=== PATIENT | male | born 1995 | race American Indian/Alaskan Native ===

== ENCOUNTER 2016-08-26 22:36 | Emergency (ER) | payer SELFPAY | END 2016-08-26 23:43 | disposition left against medical advice (07) | LOC: ED 22:36 | DX: Z00.8 Encounter for other general examination (principal); Z53.21 Procedure and treatment not carried out due to patient leaving prior to being seen by health care provider ==

== ENCOUNTER 2021-02-26 18:56 | Emergency (ER) | payer MEDICAID, SELFPAY ==
[2021-02-26] MEDS ORDERED: LORazepam 2 MG/ML VIAL IM PRN (19:47)
[2021-02-26] MEDS ORDERED: HALOPERIDOL LACTATE 5 MG/1 ML INJ IM PRN (19:47)
[2021-02-26] MEDS ORDERED: diphenhydrAMINE 25 MG CAP PO PRN (19:47)
--- NOTE | 2021-02-26 19:53 | Emergency Department Report ---
ED General Adult HPI - General Chief complaint: Psych Stated complaint: I am fine, how are you PUI?: No Time Seen by Provider: 02/26/21 19:38 Source: patient, EMS ( EMS documentation not available at time of chart dictati on ), RN notes reviewed, old records reviewed Mode of arrival: Ambulatory Limitations: Other (The patient is psychotic and disorganized) - History of Present Illness Initial comments: This is a 25-year-old gentleman. He is not known to myself previously. He presents to the ER with a signed 1013 for acute psychosis. As per 1013 documentation: "Individual is diagnosed with schizophrenia. He was observed being paranoid and delusional. Mom reported [ ] is pacing all night and not sleeping ind report document and people are after him." "Individual took a letter from his pocket and kneeled on the floor holding fire []" The signed 1013 is difficult to read. The patient himself denies physical pain. He states he is not homicidal or suicidal. He states he has not tried to overdose on anything. He states he lives with his mother. He believes he takes medications that are "prescribed by my teacher." He thinks he goes to either [facility] or [facility] for his prescriptions. He does not know specifically what prescriptions he takes. At the moment, the patient is not accompanied by friends or family at this time for collateral information or additional information. Attempted to call mother at listed phone number; [phone]. Called, nobody answer, left voicemail for call back. Patient is disorganized, delusional, psychotic and a poor historian. He is therefore not able to describe the qualitative nature of his symptoms, exacerbating factors, relieving factors or aggravating factors. However, he states he has no complaints at this time.. -: This afternoon Quality: other Consistency: other Improves with: other Worsens with: other Associated Symptoms: other - Related Data Allergies Allergy/AdvReac Type Severity Reaction Status Date / Time No Known Allergies Allergy Unverified 02/26/21 20:00 ED Review of Systems ROS: Stated complaint: MENTAL HEALTH Other details as noted in HPI Comment: Unobtainable due to pts medical conditions (Patient is disorganized and psychotic. The patient denies all complaints.) ED Physical Exam - General Limitations: Other (Acute psychosis) General appearance: alert, in no apparent distress - Head Head exam: Present: atraumatic, normocephalic - Eye Eye exam: Present: normal appearance, EOMI. Absent: nystagmus - ENT ENT exam: Present: normal exam, normal orophraynx, mucous membranes moist, normal external ear exam - Neck Neck exam: Present: normal inspection, full ROM. Absent: tenderness, meningismus - Respiratory Respiratory exam: Present: normal lung sounds bilaterally. Absent: respiratory distress, wheezes, rales, rhonchi, stridor, decreased breath sounds - Cardiovascular Cardiovascular Exam: Present: regular rate, normal rhythm, normal heart sounds. Absent: bradycardia, tachycardia, irregular rhythm, systolic murmur, diastolic murmur, rubs, gallop - GI/Abdominal GI/Abdominal exam: Present: soft. Absent: distended, tenderness, guarding, rebound, rigid, pulsatile mass - Rectal Rectal exam: Present: deferred - Extremities Exam Extremities exam: Present: normal inspection, full ROM, other (2+ pulses noted in the bilateral upper and lower extremities. There is no palpable cord. negative Homans sign. Muscular compartments are soft. The pelvis is stable.). Absent: pedal edema, calf tenderness - Back Exam Back exam: Present: normal inspection, full ROM. Absent: tenderness, CVA tenderness (R), CVA tenderness (L), paraspinal tenderness, vertebral tenderness - Neurological Exam Neurological exam: Present: alert (The patient is alert to name diagnosis), normal gait, other (No facial droop. Tongue midline. Extraocular movements intact bilaterally. Facial sensation intact to light touch in V1, V2, V3 distribution bilaterally. 5 and a 5 strength in 4 extremities. Sensation intact to light touch in 4 extremities.). Absent: motor sensory deficit - Psychiatric Psychiatric exam: Present: anxious - Skin Skin exam: Present: warm, dry, intact, normal color. Absent: rash ED Course Vital Signs 02/26/21 02/26/21 20:06 20:08 Temperature 99.5 F Pulse Rate 51 L Respiratory 18 20 Rate Blood Pressure 116/69 [Right] O2 Sat by Pulse 100 100 Oximetry - Reevaluation(s) Reevaluation #1: 02/26/21 19:53 Differential diagnosis, including but not limited to: Psychosis, schizophrenia, medical clearance for psychiatric placement Assessment and plan: 25-year-old gentleman, who is pleasant, calm and cooperative, who presents with the signs 1013, and documentation of paranoid and delusional behavior. Patient placed on hold status. Appropriate screening laboratory studies ordered, including Covid swab. This is to facilitate psychiatric placement. Have requested that nursing team reconcile patient's home medications. Have called up family, no answer, left voicemail for call back. Reassess after initial data points. 02/26/21 21:15 Laboratory studies thus far unremarkable. Valproic acid and lithium levels pending. Elevated CK and appreciated, given young age, soft muscular compartments, normal renal function, this does not represent definition criteria for rhabdomyolysis, this will decrease on its own with rest, oral hydration. Does not require IV fluids or repeat check at this time. Assuming Depakote and lithium levels within normal limits, the patient is found to be medically suitable for psychiatric consultation, evaluation and placement. Specifically, at this point time, this patient does not appear to have an emergent medical condition which would preclude psychiatric consultation, evaluation, placement and disposition 02/26/21 21:41 Toxicology screen unremarkable. Awaiting psychiatric recommendations. Medically suitable for psychiatric placement at this time. No emergent medical condition is identified. ED Medical Decision Making - Lab Data Result diagrams: 02/26/21 19:51 02/26/21 19:51 Vital Signs 02/26/21 02/26/21 20:06 20:08 Temperature 99.5 F Pulse Rate 51 L Respiratory 18 20 Rate Blood Pressure 116/69 [Right] O2 Sat by Pulse 100 100 Oximetry Lab Results 02/26/21 02/26/21 02/26/21 Range/Units 19:51 19:51 19:51 WBC 3.8 L (4.5-11.0) K/mm3 RBC 4.37 (3.65-5.03) M/mm3 Hgb 14.2 (11.8-15.2) gm/dl Hct 41.5 (35.5-45.6) % MCV 95 H (84-94) fl MCH 32 (28-32) pg MCHC 34 (32-34) % RDW 14.2 (13.2-15.2) % Plt Count 174 (140-440) K/mm3 Sodium (137-145) mmol/L Potassium (3.6-5.0) mmol/L Chloride (98-107) mmol/L Carbon Dioxide (22-30) mmol/L Anion Gap mmol/L BUN (9-20) mg/dL Creatinine (0.8-1.3) mg/dL Estimated GFR ml/min BUN/Creatinine Ratio % Glucose (75-100) mg/dL Calcium (8.4-10.2) mg/dL Magnesium (1.7-2.3) mg/dL Total Bilirubin (0.1-1.2) mg/dL AST (5-40) units/L ALT (7-56) units/L Alkaline Phosphatase (35-129) units/L Total Creatine Kinase (55-170) units/L Total Protein (6.3-8.2) g/dL Albumin (3.9-5) g/dL Albumin/Globulin Ratio % TSH (0.270-4.200) mlU/mL Urine Color (Yellow) Urine Turbidity (Clear) Urine pH (5.0-7.0) Ur Specific [place] (1.003-1.030) Urine Protein (Negative) mg/dL Urine Glucose (UA) (Negative) mg/dL Urine Ketones (Negative) mg/dL Urine Blood (Negative) Urine Nitrite (Negative) Urine Bilirubin (Negative) Urine Urobilinogen (<2.0) mg/dL Ur Leukocyte Esterase (Negative) Urine WBC (Auto) (0.0-6.0) /HPF Urine RBC (Auto) (0.0-6.0) /HPF Urine Mucus /HPF Salicylates < 0.3 L (2.8-20.0) mg/dL Urine Opiates Screen Urine Methadone Screen Acetaminophen 5.0 L (10.0-30.0) ug/mL Ur Barbiturates Screen Ur Phencyclidine Scrn Ur Amphetamines Screen U Benzodiazepines Scrn Urine Cocaine Screen U Marijuana (THC) Screen Drugs of Abuse Note Plasma/Serum Alcohol (0-0.07) % 02/26/21 02/26/21 02/26/21 Range/Units 19:51 19:51 19:51 WBC (4.5-11.0) K/mm3 RBC (3.65-5.03) M/mm3 Hgb (11.8-15.2) gm/dl Hct (35.5-45.6) % MCV (84-94) fl MCH (28-32) pg MCHC (32-34) % RDW (13.2-15.2) % Plt Count (140-440) K/mm3 Sodium 138 (137-145) mmol/L Potassium 4.3 (3.6-5.0) mmol/L Chloride 99.8 (98-107) mmol/L Carbon Dioxide 27 (22-30) mmol/L Anion Gap 16 mmol/L BUN 16 (9-20) mg/dL Creatinine 1.1 (0.8-1.3) mg/dL Estimated GFR > 60 ml/min BUN/Creatinine Ratio 15 % Glucose 121 H (75-100) mg/dL Calcium 9.9 (8.4-10.2) mg/dL Magnesium 1.80 (1.7-2.3) mg/dL Total Bilirubin 0.50 (0.1-1.2) mg/dL AST 22 (5-40) units/L ALT 12 (7-56) units/L Alkaline Phosphatase 64 (35-129) units/L Total Creatine Kinase 686 H (55-170) units/L Total Protein 7.7 (6.3-8.2) g/dL Albumin 5.1 H (3.9-5) g/dL Albumin/Globulin Ratio 2.0 % TSH 0.392 (0.270-4.200) mlU/mL Urine Color (Yellow) Urine Turbidity (Clear) Urine pH (5.0-7.0) Ur Specific [place] (1.003-1.030) Urine Protein (Negative) mg/dL Urine Glucose (UA) (Negative) mg/dL Urine Ketones (Negative) mg/dL Urine Blood (Negative) Urine Nitrite (Negative) Urine Bilirubin (Negative) Urine Urobilinogen (<2.0) mg/dL Ur Leukocyte Esterase (Negative) Urine WBC (Auto) (0.0-6.0) /HPF Urine RBC (Auto) (0.0-6.0) /HPF Urine Mucus /HPF Salicylates (2.8-20.0) mg/dL Urine Opiates Screen Urine Methadone Screen Acetaminophen (10.0-30.0) ug/mL Ur Barbiturates Screen Ur Phencyclidine Scrn Ur Amphetamines Screen U Benzodiazepines Scrn Urine Cocaine Screen U Marijuana (THC) Screen Drugs of Abuse Note Plasma/Serum Alcohol < 0.01 (0-0.07) % 02/26/21 02/26/21 Range/Units Unknown Unknown WBC (4.5-11.0) K/mm3 RBC (3.65-5.03) M/mm3 Hgb (11.8-15.2) gm/dl Hct (35.5-45.6) % MCV (84-94) fl MCH (28-32) pg MCHC (32-34) % RDW (13.2-15.2) % Plt Count (140-440) K/mm3 Sodium (137-145) mmol/L Potassium (3.6-5.0) mmol/L Chloride (98-107) mmol/L Carbon Dioxide (22-30) mmol/L Anion Gap mmol/L BUN (9-20) mg/dL Creatinine (0.8-1.3) mg/dL Estimated GFR ml/min BUN/Creatinine Ratio % Glucose (75-100) mg/dL Calcium (8.4-10.2) mg/dL Magnesium (1.7-2.3) mg/dL Total Bilirubin (0.1-1.2) mg/dL AST (5-40) units/L ALT (7-56) units/L Alkaline Phosphatase (35-129) units/L Total Creatine Kinase (55-170) units/L Total Protein (6.3-8.2) g/dL Albumin (3.9-5) g/dL Albumin/Globulin Ratio % TSH (0.270-4.200) mlU/mL Urine Color Yellow (Yellow) Urine Turbidity Clear (Clear) Urine pH 5.0 (5.0-7.0) Ur Specific [place] 1.025 (1.003-1.030) Urine Protein <15 mg/dl (Negative) mg/dL Urine Glucose (UA) Neg (Negative) mg/dL Urine Ketones Neg (Negative) mg/dL Urine Blood Neg (Negative) Urine Nitrite Neg (Negative) Urine Bilirubin Neg (Negative) Urine Urobilinogen 2.0 (<2.0) mg/dL Ur Leukocyte Esterase Neg (Negative) Urine WBC (Auto) 3.0 (0.0-6.0) /HPF Urine RBC (Auto) 2.0 (0.0-6.0) /HPF Urine Mucus Few /HPF Salicylates (2.8-20.0) mg/dL Urine Opiates Screen Presumptive negative Urine Methadone Screen Presumptive negative Acetaminophen (10.0-30.0) ug/mL Ur Barbiturates Screen Presumptive negative Ur Phencyclidine Scrn Presumptive negative Ur Amphetamines Screen Presumptive negative U Benzodiazepines Scrn Presumptive negative Urine Cocaine Screen Presumptive negative U Marijuana (THC) Screen Presumptive positive Drugs of Abuse Note Disclamer Plasma/Serum Alcohol (0-0.07) % Critical care attestation.: If time is entered above; I have spent that time in minutes in the direct care of this critically ill patient, excluding procedure time. ED Disposition Clinical Impression: Medical clearance for psychiatric admission, Psychosis Disposition: [id number]/TX-[id number] PSY HOSP/PSY UNIT Is pt being admited?: No Does the pt Need Aspirin: No Condition: Good
[2021-02-26 20:08] LABS: Amphetamine Screen,Urine PRESUMPTIVE NEGATIVE; Benzodiazepines Screen,Urine PRESUMPTIVE NEGATIVE; Bilirubin,Urine NEG (Negative); Blood,Urine NEG (Negative); Cannabinoid Screen,Urine PRESUMPTIVE POSITIVE; Cocaine Screen,Urine PRESUMPTIVE NEGATIVE; Color,Urine Yellow (Yellow); Methadone Screen,Urine PRESUMPTIVE NEGATIVE; Mucus,Urine FEW /HPF; Opiate Screen,Urine PRESUMPTIVE NEGATIVE; Protein,Urine <15 mg/dL mg/dL (Negative)
[2021-02-26 20:13] LABS: Hematocrit 41.5 % (35.5-45.6); Hemoglobin 14.2 gm/dl (11.8-15.2); Mean Corpuscular HGB Conc 34 % (32-34); Mean Corpuscular Volume 95 fl (84-94); Red Blood Count 4.37 M/mm3 (3.65-5.03); Red Cell Distribution Width 14.2 % (13.2-15.2)
[2021-02-26 20:17] LABS: Platelet Count 174 K/mm3 (140-440)
[2021-02-26 20:27] LABS: Alanine Aminotransferase 12 units/L (7-56); Albumin 5.1 g/dL (3.9-5); BUN/Creatinine Ratio 15; Blood Urea Nitrogen 16 mg/dL (9-20); Calcium 9.9 mg/dL (8.4-10.2); Hemolysis Index 8
--- NOTE | 2021-02-27 09:47 | Consultation ---
History of Present Illness - Reason for Consult Consult date: 02/27/21 Reason for consult: psychosis - History of Present Psychiatric Illness Per ER Note: This is a 25-year-old gentleman. He is not known to myself previously. He presents to the ER with a signed 1013 for acute psychosis. As per 1013 documentation: "Individual is diagnosed with schizophrenia. He was observed being paranoid and delusional. Mom reported [ ] is pacing all night and not sleeping ind report document and people are after him." "Individual took a letter from his pocket and kneeled on the floor holding fire" The signed 1013 is difficult to read. The patient himself denies physical pain. He states he is not homicidal or suicidal. He states he has not tried to overdose on anything. He states he lives with his mother. He believes he takes medications that are "prescribed by my teacher." He thinks he goes to [facility] or [facility] for his prescriptions. He does not know specifically what prescriptions he takes. During my evaluation of 25y/o Peyton Perez, the patient was smiling inappropriately, he is responding to internal stimuli, he is paranoid. The patient is whispering at times, and at times doesn't answer the questions at all. He looks away as if listening to something. When asked why was he brought to the hospital, the patient replies "I don't even know. I was just minding my business." He then says "there are some people trying to kill me." The patient looks around. When asking the patient was he SI/HI. He fell silent and didn't say anything else. PAST PSYCHIATRIC HISTORY: Unable to obtain PAST MEDICAL HISTORY: None reported or document Family Psychiatric History: None reported or documented SOCIAL HISTORY Unable to call in REVIEW OF SYSTEMS Unable to adequately assess MENTAL STATUS EXAMINATION General Appearance and Behavior: Age appropriate, wearing appropriate clothes, cooperative, polite with questioning, fair eye contact, calm Cooperation: cooperative Psychomotor Behavior: Psychomotor normal Mood: Affect and affective range: smiling inappropriately Thought Process: illogical Thought Content: hallucinations, responding to internal stimuli Speech: Normal volume, Regular rate and rhythm, whispering at times Suicidal Ideation: did not answer Homicidal Ideation: Did not answer hallucination: Auditory Delusions: paranoid Impulse Control: Intact Insight and Judgment: Limited Memory: Intact Attention: attentive, engaging Orientation: Alert and oriented Diagnoses: Schizophrenia Treatment Plan Risperidone 0.5mg po BID Trazodone 50mg po qhs PSYCHOTHERAPY: Supportive psychotherapy provided MEDICAL: Per primary team DELIRIUM PRECAUTIONS: Please re-orient patient frequently, keep lights on during the day, and minimize benzodiazepines and opiates as these medications could worsen patient's confusion. 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 Please contact with any questions and/or concerns. Case staffed with Dr. Ngo Medications and Allergies Allergies Allergy/AdvReac Type Severity Reaction Status Date / Time No Known Allergies Allergy Unverified 02/26/21 20:00 Active Meds: Active Medications Diphenhydramine HCl (Diphenhydramine 25 Mg Cap) 50 mg PO QHS PRN PRN Reason: Insomnia Haloperidol Lactate (Haloperidol Lactate 5 Mg/1 Ml Inj) 5 mg IM Q6HR PRN PRN Reason: Agitation Lorazepam (Lorazepam 2 Mg/Ml Vial) 2 mg IM Q4HR PRN PRN Reason: Agitation Mental Status Exam - Vital signs Last Vital Signs Temp 97.6 F 02/27/21 08:22 Pulse 71 02/27/21 08:22 Resp 20 02/27/21 08:22 BP 127/71 02/27/21 08:22 Pulse Ox 100 02/27/21 08:22 Results Result Diagrams: 02/26/21 19:51 02/26/21 19:51 Abnormal lab results 02/26/21 02/26/21 02/26/21 Range/Units 19:51 19:51 19:51 WBC 3.8 L (4.5-11.0) K/mm3 MCV 95 H (84-94) fl Glucose (75-100) mg/dL Total Creatine Kinase (55-170) units/L Albumin (3.9-5) g/dL Salicylates < 0.3 L (2.8-20.0) mg/dL Acetaminophen 5.0 L (10.0-30.0) ug/mL Valproic Acid < 2.8 L (50-100) ug/mL 02/26/21 Range/Units 19:51 WBC (4.5-11.0) K/mm3 MCV (84-94) fl Glucose 121 H (75-100) mg/dL Total Creatine Kinase 686 H (55-170) units/L Albumin 5.1 H (3.9-5) g/dL Salicylates (2.8-20.0) mg/dL Acetaminophen (10.0-30.0) ug/mL Valproic Acid (50-100) ug/mL All other labs normal.
--- NOTE | 2021-02-27 10:36 | Event Note ---
Date: 02/27/21 Patient is 25 years old history of schizophrenia Patient has been admitted to the emergency room for evaluation of acute psychosis. No overnight issues. Vital signs stable. Labs reviewed and is unremarkable except for slight elevated CK of 686. Waiting for inpatient psychiatric admission.
[2021-02-27] MEDS: risperiDONE 0.25 MG TAB PO SCH ×2 (11:00→23:56)
[2021-02-27] MEDS ORDERED: traZODone 50 MG TAB PO SCH (22:00)
[2021-02-28 09:25] VITALS: BP 118/77
[2021-02-28] MEDS: risperiDONE 0.25 MG TAB PO SCH (09:55)
--- NOTE | 2021-02-28 10:12 | Event Note ---
S: Sleeping O stable vital signs A: Schizophrenia, history of acute psychosis patient is medically clear for psychiatric care P: Awaiting treatment recommendations per psychiatric team
--- NOTE | 2021-02-28 11:39 | Progress Note ---
Subjective - Reason for Consult Consult date: 02/28/21 Reason for consult: Psychosis - Chief Complaint Chief complaint: The patient was seen today in the ED waiting room. Patient reports doing well. He reports sleep and appetite as good. Patient denies any current suicidal/homicidal ideation and denies hallucination. Called patient's mother to discuss treatment plan. She reports that he is noncompliant with medication. She is receptive to patient getting discharged today. She reports that he has medications at home. Review of System Constitutional: Negative for weight loss ENT: Negative for stridor Respiratory: Negative for cough or hemoptysis All other systems reviewed and are negative MENTAL STATUS EXAMINATION General Appearance and Behavior: Age appropriate, wearing appropriate clothes, cooperative, polite with questioning, fair eye contact, calm Cooperation: cooperative Psychomotor Behavior: Psychomotor normal Mood: ok Affect and affective range: congruent with stated mood Thought Process:Goal directed Thought Content:Denies hallucinations Speech: Normal volume, Regular rate and rhythm Suicidal Ideation: Denies Homicidal Ideation: Denies hallucination:Denies Delusions:None Impulse Control: Intact Insight and Judgment: Limited Memory: Intact Attention: attentive, engaging Orientation: Alert and oriented Diagnoses: Schizophrenia Treatment Plan Risperidone 0.5mg po BID Trazodone 50mg po qhs PSYCHOTHERAPY: Supportive psychotherapy provided MEDICAL: Per primary team DELIRIUM PRECAUTIONS: Please re-orient patient frequently, keep lights on during the day, and minimize benzodiazepines and opiates as these medications could worsen patient's confusion. 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 Thank you for the consult. Please contact with any questions and/or concerns. Case staffed with Dr. Ngo Medications and Allergies Mental Status Exam - Vital signs Last Vital Signs Temp 97.5 F L 02/28/21 08:00 Pulse 62 02/28/21 08:00 Resp 14 02/28/21 08:00 BP 118/77 02/28/21 08:00 Pulse Ox 100 02/28/21 08:00
== END 2021-02-28 19:58 | disposition home or self-care (01) ==
LOC: ED 18:56
DX: Z13.30 Encounter for screening examination for mental health and behavioral disorders, unspecified (principal); F29 Unspecified psychosis not due to a substance or known physiological condition; Z20.822 Contact with and (suspected) exposure to COVID-19; Z79.899 Other long term (current) drug therapy
CPT/HCPCS: 36415; 80053; 80164; 80178; 80307; 81001; 82550; 83735; 84443; 85027; 99284; U0003; 80320; G0480